=== PATIENT | female | born 1975 ===

== ENCOUNTER 2017-05-29 11:02 | Inpatient (IN) | payer OTHER ==
[2017-05-29 11:09] VITALS: BMI 32.3
[2017-05-29] MEDS ORDERED: Thrombin Topical 5,000 IU Spray Kit ONE (13:16)
[2017-05-29] MEDS ORDERED: Bupivacaine 0.5% Inj(30mL) ONE (13:16)
[2017-05-29] MEDS ORDERED: Absorbable Gelatin Sponge Size 100 ONE (13:16)
[2017-05-29] MEDS ORDERED: MethylPREDNISolone Depo 40 mg/ml Inj ONE (13:16)
[2017-05-29] MEDS ORDERED: Midazolam 2 MG/2 ML VIAL ONE (14:09)
[2017-05-29] MEDS ORDERED: Propofol 10 mg/ml Inj (20 ML) ONE (14:09)
[2017-05-29] MEDS ORDERED: Lactated Ringer's 1,000 ML IV ONE ×4 (14:10→19:15)
[2017-05-29] MEDS ORDERED: Phenylephrine 10 mg/ml Inj ONE (14:46)
[2017-05-29] MEDS ORDERED: Liquid Adhesive TOP ONE ×3 (15:22→18:47)
[2017-05-29] MEDS ORDERED: Vancomycin 1 g Inj IVPB ONE (15:55)
[2017-05-29] MEDS ORDERED: MethylPREDNISolone Depo 40 mg/ml Inj IM ONE (18:45)
[2017-05-29] MEDS ORDERED: Bupivacaine 0.5% 50 ML IJ ONE (18:45)
[2017-05-29] MEDS: HYDROmorphone 0.5 mg/0.5 ml ISec IVP PRN ×3 (19:35→21:02)
[2017-05-29] MEDS ORDERED: Oxycodone/Acetaminophen 5/325 mg Tab PO PRN ×3 (19:46→19:48)
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
[2017-05-29] MEDS: Lactated Ringer's 1,000 ML IV SCH (23:18)
[2017-05-30] MEDS: ceFAZolin 1 GM in Sodium Chloride 0.9% 100 ML IVPB SCH ×2 (00:20→07:59)
[2017-05-30 05:24] LABS: HEMATOCRIT 39.3 % (34.0-47.0); MEAN CELL VOLUME 90.1 fl (81.0-99.0); MEAN CORPUSCULAR HEMOGLOBIN 29.7 pg (27.0-31.0); RED CELL DISTRIBUTION WIDTH 13.2 % (11.5-14.5); WHITE BLOOD COUNT 14.9 K/uL (4.8-10.8)
[2017-05-30 05:32] LABS: BLOOD UREA NITROGEN 9 mg/dl (7-17); CALCIUM 9.1 mg/dL (8.4-10.2); CARBON DIOXIDE 27 mmol/L (22-30); CHLORIDE 99 mmol/L (98-107); GFR AFRICAN-AMERICAN > 60; GLUCOSE,RANDOM 258 mg/dL (65-105); SODIUM 136 mmol/l (132-148)
[2017-05-30] MEDS: Lactated Ringer's 1,000 ML IV SCH (07:26)
[2017-05-30 07:31] VITALS: RESP 20
[2017-05-30 07:44] VITALS: BP 122/76; PULSE 106; TEMP 98.8; O2SAT 96
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
[2017-05-30] MEDS ORDERED: LIRAGLUTIDE 1.8 MG SC SCH (09:00)
--- NOTE | 2017-06-02 11:06 | RAD ---
PROCEDURE: INTRAOPERATIVE FLUOROSCOPY HISTORY: ANTERIOR CERVICAL DISCECTOMY WITH FUSION COMPARISON: NONE TECHNIQUE: Intra under fluoroscopy was provided to the referring physician to assist in apparent anterior cervical discectomy and fusion. FINDINGS: Two spot fluoroscopic images have been submitted demonstrating anterior approaches to cervical discectomy and fusion. Please see operative report further detail. 5.0 seconds of fluoroscopy time was utilized with a total radiation dose of 1.19 mGy. IMPRESSION: Please see operative report further detail.
== END 2017-05-30 10:44 | disposition home or self-care (01) | DRG 473 ==
LOC: H.OPSURG 11:02 → H.MEDSURG1 19:17
PROVIDERS: ADMIT Orthopaedic Surgery Orthopaedic Surgery of the Spine; ATTEND Orthopaedic Surgery Orthopaedic Surgery of the Spine
PROC: 0RG20A0 Fusion of 2 or more Cervical Vertebral Joints with Interbody Fusion Device, Anterior Approach, Anterior Column, Open Approach (ICD-10-PCS; 2017-05-29)
PROC: 0RT30ZZ Resection of Cervical Vertebral Disc, Open Approach (ICD-10-PCS; principal; 2017-05-29 11:45)
DX: M50.121 Cervical disc disorder at C4-C5 level with radiculopathy (principal); I10 Essential (primary) hypertension; E11.9 Type 2 diabetes mellitus without complications; E78.5 Hyperlipidemia, unspecified